=== PATIENT | male | born 2000 | race African-American/Black ===

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

== ENCOUNTER 2019-08-22 12:14 | Emergency (ER) | payer SELFPAY ==
[~2019-08-22] VITALS: Ht 185.4 cm; Wt 96.5 kg
[2019-08-22 15:01] VITALS: BP 160/78
== END 2019-08-22 18:00 | disposition home or self-care (01) ==
LOC: ER 12:14
DX: K52.9 Noninfective gastroenteritis and colitis, unspecified (principal); F12.10 Cannabis abuse, uncomplicated; F17.200 Nicotine dependence, unspecified, uncomplicated; J39.2 Other diseases of pharynx
CPT/HCPCS: 99283